=== PATIENT | male | born 1995 | race Caucasian/White ===

== ENCOUNTER 2023-10-02 09:17 | Outpatient (CLI) | payer BC | END 2023-10-02 23:59 | disposition home or self-care (01) | LOC: RAD 09:17 | PROVIDERS: ATTEND Nurse Practitioner Primary Care | DX: N28.89 Other specified disorders of kidney and ureter (principal); E80.7 Disorder of bilirubin metabolism, unspecified | CPT/HCPCS: 76700 ==

== ENCOUNTER 2024-12-27 01:59 | Emergency (ER) | payer BC, MEDICAID ==
[2024-12-27] VITALS (8 sets, daily range): BP systolic 107–123; BP diastolic 64–80; PULSE 58–88; RESP 11–16; TEMP 97.7; O2SAT 94–100
[~2024-12-27] VITALS: Ht 177.8 cm; Wt 68.2 kg
--- NOTE | 2024-12-27 02:21 | Physician Documentation ---
History of Present Illness ~ Chief Complaint: Penile Pain Stated Complaint: SEE CHIEF COMPLAINT Time Seen by MD: 02:20 OK to notify your PCP?: Yes Source: patient, RN/MD, RN notes reviewed, old records Mode of Arrival: POV Exam Limitations: no limitations HPI This patient states he was trying to go to sleep and resting he was in a right state of mind but had a spontaneous erection unclear how it started how long it was a react but he stated he pushed it down so that he would not be a react he denies masturbation denies any sexual intercourse denies taking medications to have interaction. The patient then felt a pop it was painful it is now swollen with ecchymosis deformed he came in for evaluation. He states he has a high pain tolerance and that is why it is not excruciating pain. Last meal 10:00 a.m. had some cookies Medication Reconciliation Allergies: Coded Allergies: No Known Allergies (Unverified , 12/27/24) Past Medical History Past Medical History: No Pertinent History Past Surgical History: no surgical history Smoking Status: Never smoker Alcohol Use: None Drug Use: none Review of Systems All Other Systems at this time: Reviewed and Negative Physical Exam Vital Signs: RN Vital Signs have been reviewed: Yes, Temperature: 97.7, Source: Oral, Heart Rate: 76, Respiratory Rate: 16, BP: 128/92, Pulse Oximetry: 100, Weight: 68.180 Oxygen Flow Rate: 0 Physical Exam General: The patient is well developed, well nourished, nontoxic appearing and is in no acute distress. Skin: Sylvester, warm and dry with no rashes. HEENT: Head was normocephalic and atraumatic. Eyes - pupils equal, round, reactive to light and accommodation. Extraocular movements were intact. Conjunctivae were nonicteric. . The mouth and oropharynx were clear with moist mucous membranes. There were no pharyngeal exudates or erythema. Neck: Supple and nontender. Chest: Clear to auscultation bilaterally without wheezes, rales or rhonchi. Heart: Rate regular and rhythmic. S1, S2. No murmurs. Abdomen: Soft, nontender and nondistended. Positive bowel sounds. No guarding or rebound. : Normal male genitalia scrotum. However the penile shaft at the base is 3-4 times the normal girth with swelling at the distal aspect of the penile shaft it is angulated and just proximal to the glans penis significant ecchymosis and swelling. Extremities: No cyanosis, clubbing or edema. The patient moves all extremities. Pulses were equal and symmetric. Neurologic: Motor sensory grossly intact Psychologic: The patient was oriented to person, place and time. The patient demonstrated appropriate judgement and insight. Progress Progress Note 2:45 a.m. discussed the case with Urology 2:50 a.m. discussed the case with the hospitalist service but will wait for direction per surgery since the patient has no other real medical complaints or diagnoses. Results/Orders Reviewed/noted all lab results: Yes Results/Orders Orders - DI CUELLAR MD * Iv Access / Saline Lock * (12/27/24 02:17) Page Hospitalist (12/27/24 02:45) Fill Out Med Reconciliation (12/27/24 02:45) Chest,Single View (12/27/24 03:15) Completed Orders - DI CUELLAR MD Cbc/Diff (12/27/24 02:17) Pt Inr (12/27/24 02:17) PTT (12/27/24 02:17) CMP (12/27/24 02:17) Type And Screen (12/27/24 02:19) Chest,Single View (12/27/24 03:15) Vital Signs 12/27/24 12/27/24 02:02 03:00 Temp 97.7 97.7 Pulse 76 75 Resp 16 18 B/P (MAP) 128/92 119/73 (88) Pulse Ox 100 99 O2 Flow Rate 0 0 Laboratory Tests Test 12/27/24 02:36 White Blood Count 6.8 Red Blood Count 4.90 Hemoglobin 14.4 Hematocrit 41.8 L Mean Corpuscular Volume 85.3 Mean Corpuscular Hemoglobin 29.4 Mean Corpuscular Hemoglobin Concent 34.4 Red Cell Distribution Width 12.8 Platelet Count 144 Mean Platelet Volume 10.0 Neutrophils (%) (Auto) 63.7 Lymphocytes (%) (Auto) 27.3 Monocytes (%) (Auto) 5.7 Eosinophils (%) (Auto) 2.5 Basophils (%) (Auto) 0.8 Neutrophils # (Auto) 4.3 Lymphocytes # (Auto) 1.9 Monocytes # (Auto) 0.4 Eosinophils # (Auto) 0.2 Basophils # (Auto) 0.1 CBC Comment Prothrombin Time 11.5 INR International Normalized Ratio 1.1 Activated Partial Thromboplast Time 29 Coagulation Comments Sodium Level 142 Potassium Level 3.8 Chloride Level 107 Carbon Dioxide Level 28.6 Anion Gap 6 L Blood Urea Nitrogen 16 Creatinine 1.00 Estimated GFR/1.73 m2 88 BUN/Creatinine Ratio 16.0 Glucose Level 135 H Calcium Level 8.6 Total Bilirubin 1.8 H Aspartate Amino Transf (AST/SGOT) 10 Alanine Aminotransferase (ALT/SGPT) 13 Alkaline Phosphatase 94 Total Protein 7.2 Albumin 4.0 Globulin 3.2 Albumin/Globulin Ratio 1.3 Chemistry Comments Re-Evaluation Re-Evaluation : Re-Evaluation: Improved Progress Patient was immediately brought to room two from triage. Immediately contacted Urology labs were obtained. Patient states his pain is tolerable. Patient was then pending emergent urological consultation. Urology immediately at bedside waiting for OR crew. Fluids were given. Labs were obtained and are reassuring. CBC chemistry as well as coagulations are within normal limits. EKG/XRAY/CT/US/VASC/MRI Chest X-Ray : Additional Comments CHEST RADIOGRAPH Indication: PAIN Technique: Single frontal view of the chest was obtained COMPARISON: None FINDINGS: Lines and Tubes: None Lungs: Clear Pleura: No effusion. No pneumothorax. Cardiomediastinal contours: Unremarkable Bones: Unremarkable IMPRESSION: 1. No acute disease. Medical Decision Making Additional info obtained from: old records Genital Diff Dx:Considerations: Include: Cellulitis, Entrapment injury, Foreign body, Facture penis, Other Departure Disposition: ADMITTED INPATIENT Admitted to Inpatient Unit: other (Urology) Admission Level of Care: Ortho Impression: Primary Impression: Fracture of erect penis Condition: Guarded Referrals: NO PRIMARY CARE PROVIDER (PCP) Education Educated: Patient Educated regarding: diagnosis, treatment, prognosis, need for follow up Critical Care Note Total Time (mins): 33 Critical Care Note The very real possibility of a deterioration of this patient's condition required the highest level of my preparedness for sudden, emergent intervention. I provided critical care services, which included medication orders, frequent reevaluations of the patient's condition and response to treatment, ordering and reviewing test results, and discussing the case with various consultants. Excludes time spent performing separately billable procedures. The critical care time associated with the care of the patient was. 33 minutes Signature Scribe Signature: No scribed Attestation: The note accurately reflects work and decisions made by me.Di Cuellar MD 12/27/24 02:21 DI CUELLAR MD Dec 27, 2024 02:21
[2024-12-27 02:59] LABS: MEAN PLATELET VOLUME 10.0 FL (7.4-10.4); RED CELL DISTRIBUTION WIDTH 12.8 % (11.5-14.5)
[2024-12-27 03:12] LABS: APTT 29 SECONDS (22-32); INR 1.1 INR
[2024-12-27 03:15] LABS: CREATININE 1.00 MG/DL (0.60-1.10); TOTAL CARBON DIOXIDE 28.6 MMOL/L (24-32); eCRCL 104 ML/MIN; eGFR 88 ML/MIN
--- NOTE | 2024-12-27 03:41 | RADIOLOGY REPORT ---
CHEST RADIOGRAPH Indication: PAIN Technique: Single frontal view of the chest was obtained COMPARISON: None FINDINGS: Lines and Tubes: None Lungs: Clear Pleura: No effusion. No pneumothorax. Cardiomediastinal contours: Unremarkable Bones: Unremarkable IMPRESSION: 1. No acute disease.
--- NOTE | 2024-12-27 03:41 | CONSULTATION REPORT ---
Consult Providers to CC ~ History of Present Illness Reason for Admit\Complaint: Penile fracture History of Present Illness Patient was going to sleep when he said he had an erection. He tried to address it without sexual activity he states by pushing down on it. There was a pop in the middle of the penis he states, and then immediate detumescence. He then presented to the emergency department. Allergies: Coded Allergies: No Known Allergies (Unverified , 12/27/24) ROS ROS A pertinent 10 point review of systems was performed and was normal except as otherwise noted. Please also see HPI for added review of systems. Exam Vitals: Vital Signs Date Time Temp Pulse Resp B/P (MAP) Pulse Ox O2 Delivery O2 Flow Rate FiO2 12/27/24 03:00 97.7 75 18 119/73 (88) 99 0 General: General: Awake and Alert, no acute distress. HEENT: HEENT: Conjunctiva pink, Sclera clear, Mucus Membranes moist. Neck: Neck: Supple without masses and tenderness. Chest: Resp: Unlabored. Cardiovascular: Heart: Regular Rate and rhythm Abdomen: Abdomen: Soft and non tender no organomegaly, penis with significant echymosis, eggplant deformity. No blood at meatus. Extremities: Extremities: No cyanosis,clubbing or edema. Skin: Skin: Warm and Dry. Diagnostic Data Last Recorded Lab Results: 12/27/24 0236 12/27/24 0236 Diagnostic Data: Laboratory Tests Test 12/27/24 02:36 Prothrombin Time 11.5 SECONDS (9.0-12.0) INR International Normalized Ratio 1.1 INR Activated Partial Thromboplast Time 29 SECONDS (22-32) Coagulation Comments Problems: (1) Fracture of erect penis Status: Acute Assessment & Plan: Fractured penis. I recommend emergent surgical repair. I discussed this with the patient. I discussed risks including infection, bleeding, damage to surrounding tissues, need for subsequent procedures. I discussed alternatives including observation. I discussed benefits including repair of the fractured penis and maintaining erections. After discussion patient consented to surgery. - NPO - OR for emergent repair of penile fracture TAYA HUNG MD Dec 27, 2024 03:41
[2024-12-27] MEDS ORDERED: normal saline 1000ml 1,000 ML IV ONE (04:20)
[2024-12-27] MEDS ORDERED: BUPIVAcaine 2.5mg/ml inj 50ml vial (contains preservative) ONE (04:26)
[2024-12-27] MEDS ORDERED: bacitracin 15gm ointment TP ONE (04:36)
[2024-12-27] MEDS ORDERED: midazolam 1 mg/ML 2ml injection ONE (04:37)
[2024-12-27] MEDS ORDERED: fentaNYL /PF 50mcg/ml 5ml ampule ONE (04:37)
[2024-12-27] MEDS ORDERED: propofol inj 20 ML IV ONE (04:40)
[2024-12-27] MEDS ORDERED: LIDOcaine 2% (20mg/ml) 5ml vial ONE (04:40)
[2024-12-27] MEDS ORDERED: dexamethasone sod phosphate 4mg/ml inj. ONE (04:41)
[2024-12-27] MEDS ORDERED: rocuronium 10mg/ml inj IV ONE (04:41)
[2024-12-27] MEDS ORDERED: ondansetron/PF 4mg/2ml inj ONE (04:41)
[2024-12-27] MEDS ORDERED: glycopyrrolate 0.2mg/ml inj ONE (05:48)
[2024-12-27] MEDS ORDERED: acetaminophen 1,000mg/100ml IV 100 ML IV ONE (05:51)
--- NOTE | 2024-12-27 05:58 | OPERATIVE REPORT ---
Operative Report Providers to ~ Date of Procedure: Dec 27, 2024 Pre-Operative Diagnosis: Fractured penis Post-Operative Diagnosis SAME as PRE-Op Procedure Performed Repair of fractured penis Surgeon: Gus Barlow None Anesthesiologist: Ernst Traylor Type of Anesthesia: General Findings: Fracture of the penis with tear in the right corpora. Complications None Prosthetics\Implants used: None Estimated Blood Loss: 100 mL Specimen Removed: None Description of Procedure: Patient was brought to the operating room, given a general anesthetic, and p laced in the supine position. He was prepped and draped in the normal sterile fashion. A timeout was performed. A circumcision incision was made around the glans of the penis. The corpora were identified and the skin was pulled back until the injury on the right side of the corpora. I was able to repair the corpora of the penis with 2-0 vicryl suture until it was nicely closed and there was no further bleeding. I then made sure there was hemostasis, following which the skin of the penis was reapproximated to the glans of the penis with 3-0 chromic suture in interrupted fashion. This marked the end of the procedure. The patient was awakened from general anesthetic and transferred to the pos- operative care unit in good condition. Patient is safe for discharge home today. TAYA HUNG MD Dec 27, 2024 05:58
[2024-12-27] MEDS: HYDROcodone/acetaminophen 5mg/325mg tablet PO ONE (07:02)
[2024-12-27] MEDS: ketorolac trometh 30MG/ML vial 30 MG/ML VIAL IV ONE (07:03)
== END 2024-12-27 04:39 | disposition admitted as inpatient to this hospital (09) ==
LOC: EEVIPCON 01:59 → ER 01:59
DX: S39.840A Fracture of corpus cavernosum penis, initial encounter (principal)
CPT/HCPCS: 36415; 54437; 71045; 80053; 85025; 85610; 85730; 86885; 86900; 86901; 96374; 99291; J0131; J0690; J1100; J1885; J2003; J2250; J2405; J2704; J2710; J3010; J3490; J7030; J7120; Z7506; Z7508; Z7512; A4618; A6449; A7000